=== PATIENT | female | born 1995 | race Caucasian/White ===

== ENCOUNTER 2023-12-04 18:16 | Emergency (ER) | payer SELFPAY ==
[2023-12-04 18:19] VITALS: BP 122/89
--- NOTE | 2023-12-04 19:00 | ED.GENMED ---
History of Present Illness
General
Chief Complaint: Musculo-Skeletal Complaint
Source: patient
Time Seen by Provider: 12/04/23 18:51
History of Present Illness
History of Present Illness:
28yoF with a history of IBS, endometriosis, and OCD presenting for evaluation of right ankle pain. Patient was at work 3 days ago and she was on a ladder. She tripped and fell injuring her right ankle. Patient was seen at urgent care the following
day. She had x-rays of her ankle which were reportedly normal. She was given an Aircast and crutches. Patient is here with persistent pain. She states she is unable to bear weight without discomfort. She also reports [id number] in her
right lower leg with weightbearing. She reports a remote history of a fracture in the right ankle in 2011 which was treated conservatively with a walking boot.
Phy Exam
General Physical Exam
General Presentation: well appearing and no apparent distress
General age: appears stated age
General Skin: warm and dry
General Habitus: normal
General Mental: alert
ENT Exam
ENT Exam: normocephalic
Pulmonary Exam
Pulmonary Exam: no respiratory distress
Demorest Coma Scale
Eye Opening: Spontaneous
Verbal Response: Oriented
Motor Response: Obeys Commands
GCS Total Score: 15
Musculoskeletal Exam
Musculoskeletal Exam: other (R ankle: Mild swelling and dependent ecchymosis noted. +Tenderness to medial malleolus and medial foot. No tenderness at proximal fibula. ROM of ankle decreased 2/2 pain. 2+ DP pulse. Sensation and cap refill intact. )
Skin Exam
Skin Exam: normal color and warm/dry
Psychiatric Exam
Psychiatric Exam: normal mood/affect
Course
Orders/Labs/Results
Orders:
Orders
12/04/23 18:59
Ankle, Right 3 view CR [CR Ankle - Right Min 3 Views *] Urgent
Comment:
Reason For Exam: Injury
CR Foot - Right Min 3 Views Urgent
Comment:
Reason For Exam: injury
CR Leg Tibia/fibula Right 2 Vw Urgent
Comment:
Reason For Exam: Injury
12/04/23 19:25
Acetaminophen [Tylenol] 1,000 mg .ROUTE .STK-MED ONE
12/04/23 19:29
Acetaminophen [Tylenol] 1,000 mg PO NOW STA
Vital Signs
Initial and Last Documented VS:
Initial Vital Signs
Temp Pulse Resp BP Pulse Ox
98.0 F 90 16 122/89 100
12/04/23 18:19 12/04/23 18:19 12/04/23 18:19 12/04/23 18:19 12/04/23 18:19
Last Documented Vital Signs
Temp Pulse Resp BP Pulse Ox
98.0 F 90 16 122/89 100
12/04/23 18:19 12/04/23 18:19 12/04/23 18:19 12/04/23 18:19 12/04/23 18:19
MDM/Problems Addressed
Differential Diagnosis Includes:
28yoF here with persistent R ankle/foot pain after an injury 3 days ago. Has been seen at urgent care for the same. No deformity on exam. Mild swelling and ecchymosis noted. RLE is neurovascularly intact. Differential diagnosis includes but is not
limited to: sprain, fracture, contusion
X-rays of R foot, ankle, and tib/fib obtained. No fractures present on imaging. Patient already in Aircast and crutches. Advised continued supportive care and f/u with orthopedics. She was discharged in stable condition.
*Critical Care Note
Total Time (30-74mins, 75-104mins- exclusive of procedures): Not Applicable
ED Attending Note
-
Portions of this chart may have been created with voice recognition software.� Occasional wrong word or��sound alike� substitutions may have occurred due to the inherent limitations of voice recognition software.
Discharge Plan
Departure
Patient Disposition: Home (Routine Discharge)
Date of Disposition: 12/04/23
Time of Disposition: 20:37
Patient with high blood pressure during this ER visit?: No
Discharge Problem:
Right ankle sprain
Instructions: Ankle Sprain ED
Referrals:
Antonella Hernández CRNP [Family Provider] -
Lloyd Mcgee MD [Active] -
Stand Alone Forms: Return to Work
Activity Restrictions/Additional Instructions:
Rest, ice, compress, and elevate your ankle. Continue using air cast and crutches. Take Tylenol and ibuprofen as needed for pain.
Please call tomorrow to schedule a follow-up with orthopedics.
Interventions
Interventions:
*Risk Screen - Suicide Last Done: 12/04/23 18:19
*General Assessment Last Done: 12/04/23 18:19
*Neglect/Abuse Screening Last Done: 12/04/23 21:02
*ED COVID-19 Vaccine History Last Done: 12/04/23 18:19
*Nursing Disposition Last Done: 12/04/23 21:02
ED-Musculoskeletal Assessment Last Done: 12/04/23 18:54
Discharge Date and Time
Discharge Date/Time: 12/04/23 21:02
Print Language: BOLIVIAN
[2023-12-04] MEDS: TYLENOL 1000 MG PO (19:29)
== END 2023-12-04 21:02 | disposition home or self-care (01) ==
LOC: EMR 18:16
PROVIDERS: EMERGENCY PHYSICIAN Emergency Medicine; FAMILY PHYSICIAN Nurse Practitioner Adult Health
DX: S93.401A Sprain of unspecified ligament of right ankle, initial encounter (principal); W01.0XXA Fall on same level from slipping, tripping and stumbling without subsequent striking against object, initial encounter
CPT/HCPCS: 99283; 73590; 73610; 73630

== ENCOUNTER → 2023-12-14 09:29 | Outpatient (REF) | payer OTHER, SELFPAY | LOC: HWRAD 09:29 | PROVIDERS: ATTENDING PHYSICIAN Student in an Organized Health Care Education/Training Program; FAMILY PHYSICIAN Family Medicine | DX: M25.561 Pain in right knee (principal) | CPT/HCPCS: 73700 ==